=== PATIENT | female | born 1950 | race Caucasian/White ===

== ENCOUNTER → 2018-05-28 | Outpatient (CLI) | payer MEDICARE ==
[~2018-05-28] MED LIST: ALPH100C PO; ASCO10004 PO; CHOL100011 PO; CHOL5000 PO; ESTR1TAB15 PO; EVEN500C2 PO; EVEP1CAP PO; FLAX1000 PO; FLAX10002 PO; GABA300C10 PO; GLUC-111 PO; HORS300C PO; KELP1TAB PO; L.AC1CAP6 PO; LACT1CAP35 PO; LEVO112T4 PO; LIOT5TAB3 PO; LOSA1TAB7 PO; MELO7.5T31 PO; OLIV250C PO; OMEG1CAP23 PO; PROG100C2 PO; THYROID SUPPORT PO; TRAM50TA2 PO; UBID100C24 PO; UBID100C41 PO; VITA1TAB19 PO; ZINC PO; Zinc PO; [UNRECOGNIZED DRUG - OTHER] PO; [UNRECOGNIZED DRUG - OTHER] PO; [UNRECOGNIZED DRUG - OTHER] PO; [UNRECOGNIZED DRUG - OTHER] PO; [UNRECOGNIZED DRUG - OTHER] PO; [UNRECOGNIZED DRUG - OTHER] PO; [UNRECOGNIZED DRUG - OTHER] PO; [UNRECOGNIZED DRUG - OTHER] PO; [UNRECOGNIZED DRUG - OTHER] PO; [UNRECOGNIZED DRUG - OTHER] PO; [UNRECOGNIZED DRUG - OTHER] PO; [UNRECOGNIZED DRUG - OTHER] PO; [UNRECOGNIZED DRUG - OTHER] PO
== END | disposition home or self-care (01) ==
LOC: CFH 13:30
PROVIDERS: ATTEND Nurse Practitioner Family
DX: Z12.31 Encounter for screening mammogram for malignant neoplasm of breast (principal)
CPT/HCPCS: 77063; 77067

== ENCOUNTER → 2019-05-30 | Outpatient (CLI) | payer MEDICARE ==
[~2019-05-30] MED LIST changes: +LIOT5TAB11 PO; -LIOT5TAB3 PO; +PROG100C10 PO; -PROG100C2 PO
== END | disposition home or self-care (01) ==
LOC: CFH 11:02
PROVIDERS: ATTEND Nurse Practitioner Family
DX: Z12.31 Encounter for screening mammogram for malignant neoplasm of breast (principal)
CPT/HCPCS: 77067

== ENCOUNTER → 2020-05-31 | Outpatient (CLI) | payer MEDICARE ==
[~2020-05-31] MED LIST changes: +ASCO100018 PO; -ASCO10004 PO
== END | disposition home or self-care (01) ==
LOC: CFH 12:22
PROVIDERS: ATTEND Nurse Practitioner Family
DX: Z12.31 Encounter for screening mammogram for malignant neoplasm of breast (principal)
CPT/HCPCS: 77063; 77067